=== PATIENT | female | born 2000 | race Caucasian/White ===

== ENCOUNTER 2022-10-15 10:55 | Emergency (ER) | payer OTHER ==
[~2022-10-15] VITALS: Ht 162.6 cm; Wt 59.9 kg
[2022-10-15 10:55] VITALS: BP_SYST 103
--- NOTE | 2022-10-15 11:00 | NUR ---
BROUGHT BACK TO BED #7 AND TRIAGED. REPORT GIVEN TO ALESSIA
--- NOTE | 2022-10-15 11:08 | NUR ---
BIB SELF FROM [facility] WITH C/O DIZZINESS AND WEAKNESS FOR 5 DAYS. PT ALSO SATTES SHE STARTED VOMITTING BLOOD TODAY. PT STATES SHE WAS TOLD TO VISIT A RENAL DOCTOR DUE TO ELEVATED CREATININE LEVELS 2 MONTHS AGO BUT HAS NOT FOLLOWED-UP WITH A PROVIDER. HX: RENAL ISSUES. PT IS AAX04, VSS, NAD, BREATHING IS EVEN AND UNLABORED, SKIN INTACT. PT IS AMBULATORY WITH STEADY GAIT, PT IN GOWN. PT PLACED ON INDUSTRY ANALYST SHOWING NSR. SAFETY PRECAUTIONS AND COMFORT MEASURES IN PLACE. HOB ELEVADED, SIDE RAILS UP, BED IN LOWEST POSITION, CALL LIGHT WITHIN REACH. PENDING MD BURCIAGA AND ORDERS.
--- NOTE | 2022-10-15 11:10 | NUR ---
Dr Mckee evaluating patient at bedside
[2022-10-15 13:12] VITALS: BP_SYST 102
[2022-10-15 13:12] LABS: BILIRUBIN,URINE NEGATIVE (NEGATIVE); BLOOD, URINE NEGATIVE (NEGATIVE); COLOR,URINE YELLOW (YELLOW); GLUCOSE,URINE NEGATIVE (NEGATIVE); KETONES,URINE NEGATIVE (NEGATIVE); LEUKOCYTE ESTERASE ,URINE NEGATIVE (NEGATIVE); NITRITE, URINE NEGATIVE (NEGATIVE); PROTEIN URINE NEGATIVE (NEGATIVE); UROBILINOGEN,URINE 0.2 (0.2-1.0)
--- NOTE | 2022-10-15 13:12 | NUR ---
Patient given written and verbal discharge instructions and verbalizes understanding. ER MD discussed with patient the results and treatment provided. Patient in stable condition. ID arm band removed. No Rx given. Patient educated on pain management and to follow up with PMD. Pain Scale 2/10 Opportunity for questions provided and answered. Medication side effect fact sheet provided.
[2022-10-15 13:13] LABS: CLARITY/URINE SLIGHTLY HAZY (CLEAR)
== END 2022-10-15 13:12 | disposition home or self-care (01) ==
LOC: SED 10:55
DX: B34.9 Viral infection, unspecified (principal); R42 Dizziness and giddiness; R55 Syncope and collapse; R04.2 Hemoptysis; Z79.899 Other long term (current) drug therapy
CPT/HCPCS: 71046-TC; 81003; 81025; 99284

== ENCOUNTER 2022-10-26 12:08 | Emergency (ER) | payer MEDICAID ==
[~2022-10-26] VITALS: Ht 162.6 cm; Wt 59.0 kg
[2022-10-26 12:35] VITALS: BP_SYST 102
--- NOTE | 2022-10-26 12:35 | NUR ---
Patient triaged and placed in waiting room. VSS and patient appears in no acute distress at this time. Accompanied by SELF, awaiting available bed, and MD notified of need for MSE.
--- NOTE | 2022-10-26 12:40 | NUR ---
PT CAME IN STATES THROWING UP BLOOD AND BRIGHT RED BLOOD FROM RECTUM 3 TIMES OVER 2 DAYS, GENERALIZED ABD PAIN AND CRAMPING X 1 WEEK. PT IS AMBULATORY, AAOX4, VSS
[2022-10-26] MEDS ORDERED: NACL 0.9% 1,000 ML IV ONE (13:15)
[2022-10-26] MEDS ORDERED: PANTOPRAZOLE SODIUM 40 MG/VIAL (PROTONIX) IVP ONE (13:15)
--- NOTE | 2022-10-26 13:24 | NUR ---
CALL TO BACK, NO ANSWER
[2022-10-26 13:44] LABS: BASOPHILS % (AUTO) 0.9 % (0.0-2.0); EOSINOPHILS # (AUTO) 0.2 K/uL (0.0-0.4); EOSINOPHILS % (AUTO) 4.1 % (0.0-4.0); HEMOGLOBIN 14.1 g/dL (12.0-16.0); LYMPHOCYTES # (AUTO) 1.6 K/uL (1.0-5.5); LYMPHOCYTES % (AUTO) 33.7 % (20.5-51.5); MEAN CORPUSCULAR HEMOGLOBIN 32 pg (27-31); MEAN CORPUSCULAR HGB CONC 35 % (32-36); MEAN CORPUSCULAR VOLUME 92 fL (79.0-98.0); MONOCYTES # (AUTO) 0.4 K/uL (0.0-1.0); MONOCYTES % (AUTO) 8.2 % (1.7-9.3); NEUTROPHILS # (AUTO) 2.5 K/uL (1.8-7.7); NEUTROPHILS % (AUTO) 53.1 % (40.0-70.0); PLATELET COUNT (AUTO) 309 K/uL (130-430); RED BLOOD CELL COUNT(AUTO) 4.47 MIL/uL (4.2-6.2); RED CELL DISTRIBUTION WIDTH 12.1 % (9.0-15.0); WHITE BLOOD COUNT (AUTO) 4.6 K/uL (4.5-11.0)
[2022-10-26 13:54] LABS: CREATININE 0.79 mg/dL (0.55-1.30)
[2022-10-26 14:01] LABS: ALBUMIN 3.8 g/dL (3.4-4.8); TOTAL BILIRUBIN 0.5 mg/dL (0.0-1.0)
--- NOTE | 2022-10-26 14:23 | NUR ---
Patient to ER bed H2 to gown for evaluation. Side rails up. Report given to KUSH TAFOYA.
--- NOTE | 2022-10-26 15:00 | NUR ---
ER at bedside examining patient.
[2022-10-26 15:33] LABS: PROTHROMBIN TIME 10.5 SECS (9.5-12.5)
--- NOTE | 2022-10-26 15:35 | NUR ---
Lab value HCG negative. Radiology noted Pt to CT steady gait.
[2022-10-26] MEDS ORDERED: OMEP20CA15 PO (17:22)
--- NOTE | 2022-10-26 18:09 | NUR ---
Patient given written and verbal discharge instructions and verbalizes understanding. ER MD discussed with patient the results and treatment provided. Patient in stable condition. ID arm band removed. Rx of OMEPRAZOLE given. Patient educated on pain management and to follow up with PMD. Opportunity for questions provided and answered. Medication side effect fact sheet provided.
[2022-10-26 18:10] VITALS: BP_SYST 102
== END 2022-10-26 18:10 | disposition home or self-care (01) ==
LOC: SED 12:08
DX: N93.9 Abnormal uterine and vaginal bleeding, unspecified (principal); K25.0 Acute gastric ulcer with hemorrhage; K92.0 Hematemesis; R10.13 Epigastric pain; Z79.899 Other long term (current) drug therapy
CPT/HCPCS: 99284; 74176; 96360; 80053; 84703; 85025; 85610; 85730; 86886; 86900; 86901; 36415; 76376; J7030